=== PATIENT | female | born 1985 ===

== ENCOUNTER 2023-05-08 01:01 | Emergency (ER) | payer OTHER ==
--- OUTSIDE RECORDS SUMMARY | 2023-05-08 01:04 | XMS REPORT | Continuity of Care Document ---
:1985 Author Organization [facility] t Address [address] [place] [address] Care Team Providers Name Role Phone Herlinda Rodriguez Attending Clinician Unavailable Herlinda Rodriguez Admitting Clinician Unavailable Payers Payer Name Policy Type Policy Number Effective Date Expiration Date S ource Problems This patient has no known problems. Allergies, Adverse Reactions, Alerts Allergy Allergy Status Severity Reaction(s) Onset Inactive Treating Comm ents Source Name Type Date Date Clinician azithrom DA Active U 2020-0 [facility] [place] [facility] Active U HIVES 2020-0 [facility] [place] [facility] Active U 2018-0 [facility] [place] [facility] DA Active U HIVES 2018-0 [facility] [place] Medications This patient has no known medications. Procedures Procedure Date / Time Performed Performing Clinician Tiffanie farrell [id number] 2019-12-22 00:00:00 [facility] [id number] 2019-12-22 00:00:00 [facility] [id number] 2019-12-22 00:00:00 [facility] Encounters Start End Encounter Admission Attending Care Care Encounter Source Date/Time Date/Time Type Type Clinicians Facility Department ID 2019-12-22 Inpatient LEONELA Rodriguez [id number] [facility] 21:49:00 Herlinda 42 [facility] 2019-07-25 2019-07-25 Outpatient LEONELA RodriguezWH [id number] [facility] 13:00:00 13:00:00 Herlinda 95 [facility] Results Test Description Test Time Test Comments Results Result Comments Source Coronavirus 2019 nCoV Bedside 2019-12-22 11:12:00 Test Item Value Reference Range Interpretation Comme nts Coronavirus 2019 nCoV Bedside Negative Negative RESULTS CALLED TO MINISTERIO WOMACK (test code = COVNONPUIBED) Jensen ACK & CONFIRMED? PHILIP MARCUS 12/22/19 1112 T his result does not rule out co-inf ections with otherpathogens. * False negative results may occ ur if a specimen isimproperly co llected, transported or handled. Fal se negativeresults may also occur if amplification inhibitors arep resent in the specimen or if inadequate levels of virusesare pres ent in the specimen. Negative result s should beconsidered in the context of a patient's recen t exposures,history and the presenc e of clinical signs and symptomscon sistent with COVID-19. * Neg ative results should be treated as p resumptive andtested with an alterna tive FDA authorized molecular assay if necessary for clinical managm ent, including infectioncontro l. * As with any molecular test, mutations within the target regions Haider ID NOW COVID-19 test c ould affect primerand/or pr obe binding resulting in fa ilure to detect therescence of the virus.TEST PERFORMED UNDER AN EMERGENCY USE AUTHORIZATION F ROM FDA AG HEPATITIS B [id number] 10:36:00 Test Item Value Reference Range Interpretation Comments AG HEPATITIS B SURFACE (test code NONREACTIVE NONREACTIVE = HBSAG) IS CONSENT FORM SIGNED FOR HIV TESTING? YAB HEPATITIS C [id number] 10:36:00 Test Item Value Reference Range Interpretation Comments AB HEPATITIS C (test code = NONREACTIVE NONREACTIVE HCVAB) SIGNAL TO CUTOFF (test code = 0.11 <0.80 N CUTOFF) IS CONSENT FORM SIGNED FOR HIV TESTING? YAB [id number] 10:36:00 Test Item Value Reference Range Interpretation Comments AB TREPONEMA (test code = TREPAB) NONREACTIVE NONREACTIVE IS CONSENT FORM SIGNED FOR HIV TESTING? YAB HIV 1 10:36:00 Test Item Value Reference Range Interpretation Comments AB HIV 1 2 (test NONREACTIVE NONREACTIVE Done by [facility] code = [id number]) 4th Gen HIV Ag/Ab Combo Screen IS CONSENT FORM SIGNED FOR HIV TESTING? YAG HEPATITIS B [id number] 10:25:00 Test Item Value Reference Range Interpretation Comments AG HEPATITIS B SURFACE (test code NONREACTIVE NONREACTIVE = HBSAG) IS CONSENT FORM SIGNED FOR HIV TESTING? YAB HEPATITIS C [id number] 10:25:00 Test Item Value Reference Range Interpretation Comments AB HEPATITIS C (test code = HCVAB) NONREACTIVE SIGNAL TO CUTOFF (test code = CUTOFF) <0.80 IS CONSENT FORM SIGNED FOR HIV TESTING? YAB [id number] 10:25:00 Test Item Value Reference Range Interpretation Comments AB TREPONEMA (test code = TREPAB) NONREACTIVE NONREACTIVE IS CONSENT FORM SIGNED FOR HIV TESTING? YAB HIV 1 10:25:00 Test Item Value Reference Range Interpretation Comments AB HIV 1 2 (test code = PCN02CZ) NONREACTIVE IS CONSENT FORM SIGNED FOR HIV TESTING? YCBC W/AUTO [id number] 09:28:00 Test Item Value Reference Range Interpretation Comments WHITE BLOOD CELL (test code = WBC) 14.4 K/mm3 6.6-12.1 H RED BLOOD CELL (test code = RBC) 4.04 M/mm3 3.45-5.01 N HEMOGLOBIN (test code = HGB) 11.2 g/dL 10.7-13.9 N HEMATOCRIT (test code = HCT) 34.9 % 32.1-42.1 N MEAN CELL VOLUME (test code = MCV) 86 fL 84.1-94.8 N MEAN CELL HGB (test code = MCH) 27.7 pg 27-35 N MEAN CELL HGB CONCETRATION (test 32.1 gm/dL 32.2-34.1 L code = MCHC) RED CELL DISTRIBUTION WIDTH (test 14.5 % 12.4-16.5 N code = RDW) PLATELET COUNT (test code = PLT) 158 K/mm3 133-385 N MEAN PLATELET VOLUME (test code = 10.3 fl 9.1-12.7 N MPV) NEUTROPHIL % (test code = NT%) 82.7 % 56.5-79.4 H LYMPHOCYTE % (test code = LY%) 11.6 % 14.3-34.3 L MONOCYTE % (test code = MO%) 4.3 % 5.1-10.4 L EOSINOPHIL % (test code = EO%) 0.3 % 0.1-3.0 N BASOPHIL % (test code = BA%) 0.3 % 0.1-1.0 N NEUTROPHIL # (test code = NT#) 11.9 K/mm3 LYMPHOCYTE # (test code = LY#) 1.7 K/mm3 MONOCYTE # (test code = MO#) 0.6 K/mm3 EOSINOPHIL # (test code = EO#) 0.04 K/mm3 BASOPHIL # (test code = BA#) 0.0 K/mm3 RBC MORPHOLOGY REQUIRED (test code NORMAL NORMAL = RBCM) PLATELET MORPHOLOGY REQUIRED (test NORMAL NORMAL code = PLTMR)
[2023-05-08] MEDS ORDERED: ADENOSINE 6 MG/ 2ML VIAL IV ONE ×3 (01:38→01:53)
[2023-05-08] MEDS ORDERED: MAGNESIUM SULFATE 1 gm IVPB 1 GM/100 ML BAG IV ONE (01:38)
[2023-05-08] MEDS ORDERED: NA CHLORIDE 0.9% 500 ML ONE ×2 (01:38→02:33)
[2023-05-08 01:40] LABS: Absolute Lymphocytes (CBC) 4.2 K/uL (0.7-4.9); Lymphocytes % 42.2 % (15.3-44.8); MCV 87.8 fL (80-100); MPV 7.3 fL (7.6-11.3); Platelets 260 thou/uL (152-406); RBC Red Blood Cell Count 4.89 M/uL (3.86-4.86)
[2023-05-08 02:00] LABS: ALT/SGPT 22 U/L (13-56); AST/SGOT 17 U/L (15-37); Albumin 3.8 g/dL (3.4-5.0); Alkaline Phosphatase 30 U/L (45-117); BUN Blood Urea Nitrogen 16 mg/dL (7-18); Bicarbonate 25 mEq/L (21-32); Bilirubin Total 0.3 mg/dL (0.2-1.0); Glomerular Filtration Rate 67 ml/min (=/>90); Glucose Level 110 mg/dL (74-106); NT PRO-BNP 251 pg/mL (<125); Protein, Total 7.5 g/dL (6.4-8.2); Sodium Level 138 mEq/L (136-145)
[2023-05-08 02:03] LABS: Bilirubin Direct < 0.1 mg/dL (0-0.2); Bilirubin Indirect, Calculated ND mg/dL (0.2-0.8)
[2023-05-08 02:04] LABS: Troponin High Sensitivity 152.8 pg/mL (<58.9)
[2023-05-08] MEDS ORDERED: KCL 20 MEQ/100 mL IVPB 100 ML IV ONE (02:33)
--- NOTE | 2023-05-08 04:05 | ER ---
Nurse's Notes [facility] Name: Archana Alexandre Age: 37 yrs Sex: Female : 1985 Arrival Date: 05/08/2023 Time: 01:01 Bed 4 Private MD: Diagnosis: Supraventricular tachycardia;Hypokalemia Presentation: 05/08 01:11 Chief complaint: Patient states: RACING HEART SINCE MIDNIGHT. Coronavirus screen: At bp this time, the client does not indicate any symptoms associated with coronavirus-19. Ebola Screen: No symptoms or risks identified at this time. Initial Sepsis Screen: Does the patient meet any 2 criteria? HR > 90 bpm. No. Patient's initial sepsis screen is negative. Does the patient have a suspected source of infection? No. Patient's initial sepsis screen is negative. Risk Assessment: Do you want to hurt yourself or someone else? Patient reports no desire to harm self or others. Onset of symptoms was May 08, 2023 at 00:00. 01:11 Method Of Arrival: Ambulatory bp 01:11 Acuity: CHRISTOPHER 3 bp Triage Assessment: 01:14 General: Appears in no apparent distress. Behavior is calm, cooperative, appropriate bp for age. Pain: Denies pain. Cardiovascular: Rhythm is SVT. Historical: - Allergies: 01:14 Azithromycin; bp - Home Meds: 01:14 CONTROL [Active]; bp - PMHx: 01:14 None; bp - Immunization history:: Adult Immunizations up to date. - Social history:: Smoking status: Patient denies any tobacco usage or history of. Patient/guardian denies using alcohol, street drugs, tobacco products. - Family history:: not pertinent. - Hospitalizations: : No recent hospitalization is reported. Screenin:15 [facility] ED Fall Risk Assessment (Adult) History of falling in the last 3 months, pf1 including since admission No falls in past 3 months (0 pts) Confusion or Disorientation No (0 pts) Intoxicated or Sedated No (0 pts) Impaired Gait No (0 pts) Mobility Assist Device Used No (0 pt) Altered Elimination No (0 pt) Score/Fall Risk Level 0 - 2 = Low Risk Oriented to surroundings, Maintained a safe environment, Educated pt \T\ family on fall prevention, incl call for assistance when getting out of bed, Assessed \T\ reinforced patient's understanding of fall precautions, Provided non-skid footwear, Hourly rounding (assess needs \T\ fall precautionary measures) done, Used ambulatory aids as needed (educated on \T\ assisted with), Used gait belt as appropriate. 01:15 Abuse screen: Denies threats or abuse. Nutritional screening: No deficits noted. pf1 Tuberculosis screening: No symptoms or risk factors identified. Assessment: 01:15 General: Appears in no apparent distress. uncomfortable, well groomed, well developed, pf1 Behavior is calm, cooperative, appropriate for age. 01:15 Pain: Denies pain. Neuro: No deficits noted. Level of Consciousness is awake, alert, pf1 obeys commands, Oriented to person, place, time, situation. Cardiovascular: Reports palpitations, heart racing,onset 0000. Patient denies any pain. Respiratory: No deficits noted. Airway is patent Respiratory effort is even, unlabored, Respiratory pattern is regular, symmetrical, Breath sounds are clear bilaterally. GI: No deficits noted. No signs and/or symptoms were reported involving the gastrointestinal system. : No deficits noted. No signs and/or symptoms were reported regarding the genitourinary system. EENT: No deficits noted. No signs and/or symptoms were reported regarding the EENT system. 02:15 Reassessment: Patient appears in no apparent distress at this time. Patient and/or pf1 family updated on plan of care and expected duration. Pain level reassessed. Patient is alert, oriented x 3, equal unlabored respirations, skin warm/dry/pink. Patient states symptoms have improved. 03:00 Reassessment: Patient appears in no apparent distress at this time. Patient and/or pf1 family updated on plan of care and expected duration. Pain level reassessed. Patient is alert, oriented x 3, equal unlabored respirations, skin warm/dry/pink. Patient states feeling better. Patient states symptoms have improved. 04:00 Reassessment: Patient appears in no apparent distress at this time. Patient and/or pf1 family updated on plan of care and expected duration. Pain level reassessed. Patient is alert, oriented x 3, equal unlabored respirations, skin warm/dry/pink. Patient states feeling better. Patient states symptoms have improved. Vital Signs: 01:11 BP 128 / 110; Pulse 225; Resp 20; Temp 98.1; Pulse Ox 100% ; Weight 61.23 kg; Height 5 bp ft. 7 in. ; 02:00 BP 115 / 86; Pulse 97; Resp 16; Pulse Ox 100% ; pf1 02:30 BP 114 / 92; Pulse 92; Resp 16 S; Pulse Ox 100% on R/A; km8 03:00 BP 110 / 85; Pulse 92; Resp 18 S; Pulse Ox 100% on R/A; km8 03:30 BP 119 / 86; Pulse 100; Resp 16 S; Pulse Ox 100% on R/A; km8 04:00 BP 120 / 85; Pulse 100; Resp 16 S; Pulse Ox 100% on R/A; km8 01:11 Body Mass Index 21.14 (61.23 kg, 170.18 cm) bp ED Course: 01:06 Patient arrived in ED. ag3 01:07 Narciso Eid MD is Attending Physician. rn 01:11 Yesenia Chadwick RN is Primary Nurse. km8 01:12 Triage completed. bp 01:14 Arm band placed on. bp 01:15 Client placed on continuous cardiac and pulse oximetry monitoring. NIBP monitoring pf1 applied. clinical research monitor on. Pulse ox on. 01:15 Patient has correct armband on for positive identification. Placed in gown. Bed in low pf1 position. Call light in reach. 01:15 Inserted saline lock: 20 gauge in right antecubital area, using aseptic technique. pf1 Blood collected. 01:58 Basic Metabolic Panel Sent. pf1 01:59 LFT's Sent. pf1 02:40 XRAY Chest (1 view) In Process Unspecified. EDMS 03:25 Troponin High Sensitivity: draw at 0315 Sent. km8 04:04 Hernando Velázquez MD is Referral Physician. rn 04:36 Provided Education on: follow up with cardiology. pf1 04:36 No provider procedures requiring assistance completed. IV discontinued, intact, pf1 bleeding controlled, No redness/swelling at site. Pressure dressing applied. Administered Medications: 01:25 Drug: Magnesium Sulfate IVPB 1 grams IVPB once over 1 hrs Route: IVPB; Infused Over: 1 pf1 hrs; Site: right antecubital; 02:25 Follow up: Response: No adverse reaction; Marked relief of symptoms; IV Status: pf1 Completed infusion; IV Intake: 100ml 01:25 Drug: NS 0.9% IV 500 ml IV at bolus once Route: IV; Rate: bolus; Site: right pf1 antecubital; 02:00 Follow up: Response: No adverse reaction; Marked relief of symptoms; IV Status: pf1 Completed infusion; IV Intake: 500ml 01:39 Drug: Adenocard IVP 6 mg IVP once Route: IVP; Site: right antecubital; pf1 01:50 Follow up: Response: Cardiac rhythm is unchanged pf1 01:43 Drug: Adenocard IVP 6 mg IVP once Route: IVP; Site: right antecubital; pf1 01:55 Follow up: Response: No adverse reaction; Cardiac rhythm is unchanged pf1 01:55 Drug: Adenocard IVP 6 mg IVP once Route: IVP; Site: right antecubital; pf1 02:44 Follow up: Response: No adverse reaction; Cardiac rhythm changed pf1 02:30 Drug: Potassium Chloride IV 20 mEq IV at calculated rate once; administer over 1-2 pf1 hours Route: IV; Rate: calculated rate; Site: right antecubital; 04:30 Follow up: Response: No adverse reaction; Marked relief of symptoms; IV Status: pf1 Completed infusion; IV Intake: 100ml Medication: 04:37 VIS not applicable for this client. pf1 Intake: 02:00 IV: 500ml; Total: 500ml. pf1 02:25 IV: 100ml; Total: 600ml. pf1 04:30 IV: 100ml; Total: 700ml. pf1 Outcome: 04:04 Discharge ordered by . rn 04:36 Discharged to home ambulatory, pf1 04:36 Condition: improved 04:36 Discharge instructions given to patient, Instructed on discharge instructions, follow up and referral plans. Demonstrated understanding of instructions, follow-up care, 04:37 Patient left the ED. pf1 Signatures: Dispatcher [employer] EDMS Narciso Eid MD MD rn Peltier, Brian RN RN Tabatha Washington Pamala, RN RN pf1 Yesenia Chadwick RN RN km8 Corrections: (The following items were deleted from the chart) 01:14 01:14 Allergies: No Known Allergies; bp bp
--- NOTE | 2023-05-08 04:05 | EDPHYS ---
Physician Documentation [facility] Name: Archana Alexandre Age: 37 yrs Sex: Female : 1985 Arrival Date: 05/08/2023 Time: 01: Bed 4 Private MD: ED Physician Narciso Eid HPI: 05/08 01:54 This 37 yrs old Female presents to ER via Ambulatory with complaints of Irregular rn Pulse, Arm Pain. 01:54 The patient presents with a history of heart racing. Context: The symptoms occur at rn rest, during sleep. Onset: The symptoms/episode began/occurred just prior to arrival. Modifying factors: The symptoms are aggravated by nothing. The symptoms are alleviated by nothing. Severity of symptoms: At their worst the symptoms were moderate in the emergency department the symptoms are unchanged. The patient has experienced similar episodes in the past. The patient has not recently seen a physician. Patient reports palpitations and heart racing, woke up from her sleep, has happened multiple times before but has never been able to capture it. In triage heart rate above 200. Reports full cardiac work-up in the past when this happened the first time and was unable to capture her diagnosis problem. No chest pain but feeling left arm pain. No shortness of breath or syncope.. Historical: - Allergies: 01:14 Azithromycin; bp - Home Meds: :14 CONTROL [Active]; bp - PMHx: 01:14 None; bp - Immunization history:: Adult Immunizations up to date. - Social history:: Smoking status: Patient denies any tobacco usage or history of. Patient/guardian denies using alcohol, street drugs, tobacco products. - Family history:: not pertinent. - Hospitalizations: : No recent hospitalization is reported. ROS: 01:54 Constitutional: Negative for fever, chills, and weight loss, Cardiovascular: Positive rn for palpitations Respiratory: Negative for shortness of breath, cough, wheezing, and pleuritic chest pain, Abdomen/GI: Negative for abdominal pain, nausea, vomiting, diarrhea, and constipation, MS/Extremity: Negative for injury and deformity, Skin: Negative for injury, rash, and discoloration, Neuro: Negative for headache, weakness, numbness, tingling, and seizure, Exam: :54 Constitutional: This is a well developed, well nourished patient who is awake, alert, rn anxious Head/Face: Normocephalic, atraumatic. Cardiovascular: Tachycardic, regular. No pulse deficits Respiratory: No increased work of breathing, no retractions or nasal flaring. Skin: Warm, dry, no cyanosis MS/ Extremity: Pulses equal, no cyanosis. Neuro: Awake and alert, GCS 15 01:57 ECG was reviewed by the Attending Physician. rn Vital Signs: 01:11 BP 128 / 110; Pulse 225; Resp 20; Temp 98.1; Pulse Ox 100% ; Weight 61.23 kg; Height 5 bp ft. 7 in. ; 02:00 BP 115 / 86; Pulse 97; Resp 16; Pulse Ox 100% ; pf1 02:30 BP 114 / 92; Pulse 92; Resp 16 S; Pulse Ox 100% on R/A; km8 03:00 BP 110 / 85; Pulse 92; Resp 18 S; Pulse Ox 100% on R/A; km8 03:30 BP 119 / 86; Pulse 100; Resp 16 S; Pulse Ox 100% on R/A; km8 04:00 BP 120 / 85; Pulse 100; Resp 16 S; Pulse Ox 100% on R/A; km8 01:11 Body Mass Index 21.14 (61.23 kg, 170.18 cm) bp MDM: 01:07 Patient medically screened. rn 01:53 ED course: Patient cardioverted successfully to sinus rhythm on third dose of rn adenosine, 12 mg. Now in sinus rhythm and asymptomatic.. 01:57 ED course: Repeat EKG after adenosine x3 shows normal sinus rhythm without ischemic rn findings. 02:28 ED course: Troponin 152.8. Likely demand ischemia due to persistent SVT for about an rn hour and a half. Spoke to patient about this and admission versus [place] versus repeat troponin. Patient states that she would rather repeat troponin and is now asymptomatic, if there is not a significant increase or uptrend in troponin patient would like to go home. Patient understands that this is likely going to recur and needs follow-up with electrophysiology.. 02:35 ED course: I personally spent 35 minutes engaged in work directly related to the rn individual patient's care. This does not include any time spent performing procedures. The patient has been deemed critically ill because of extreme tachycardia, SVT, requiring 3 doses of adenosine, IV magnesium and potassium. 04:03 Differential diagnosis: arrythmia, dehydration, stress disorder, SVT. Data reviewed: rn vital signs, nurses notes, lab test result(s), EKG, radiologic studies, plain films, and as a result, I will discharge patient. I considered the following discharge prescriptions or medication management in the emergency department Medications were administered in the Emergency Department. See MAR. Independent interpretation of the following test(s) in the Emergency Department EKG: See my EKG interpretation above X-Ray: My interpretation is Chest x-ray images negative for pneumothorax or infiltrate per my interpretation. Counseling: I had a detailed discussion with the patient and/or guardian regarding the historical points, exam findings, and any diagnostic results supporting the discharge/admit diagnosis, lab results, radiology results, the need for outpatient follow up, to return to the emergency department if symptoms worsen or persist or if there are any questions or concerns that arise at home. Response to treatment: the patient's symptoms have resolved after treatment, the patient's condition has returned to base line, the patient is now symptom free, and as a result, I will discharge patient. Special discussion: I discussed with the patient/guardian in detail that at this point there is no indication for admission to the hospital. It is understood, however, that if the symptoms persist or worsen the patient needs to return immediately for re-evaluation. Based on the history and exam findings, there is no indication for further emergent testing or inpatient evaluation. I discussed with the patient/guardian the need to see the combination machine tool setter for further evaluation of the symptoms. ED course: Troponin has decreased on repeat troponin since patient out of SVT and now in sinus rhythm. Will discharge home with electrophysiology follow-up and return precautions given and understood. I have personally reviewed all of the results, including but not limited to blood tests and imaging deemed necessary to safely discharge this patient at this time. All results given to and printed out for patient. I personally went over all the results with the patient and answered all questions. Patient will follow-up with PCP and or specialist as discussed. Return precautions given and understood.. 05/08 01:15 Order name: Basic Metabolic Panel; Complete Time: 02:05 rn 05/08 01:15 Order name: CBC with Diff; Complete Time: 02: rn 05/08 01:15 Order name: LFT's; Complete Time: 02: rn 05/08 01:15 Order name: NT PRO-BNP; Complete Time: 02:05 rn 05/08 01:15 Order name: Troponin HS; Complete Time: 02: rn 05/08 03:04 Order name: Troponin High Sensitivity: draw at 0315; Complete Time: 04:10 rn 05/08 01:15 Order name: XRAY Chest (1 view) rn 05/08 01:15 Order name: EKG; Complete Time: 01: rn 05/08 01:15 Order name: Cardiac monitoring; Complete Time: rn 05/08 01:15 Order name: EKG - Nurse/Tech; Complete Time: : rn 05/08 01:15 Order name: IV Saline Lock; Complete Time: rn 05/08 01:15 Order name: Labs collected and sent; Complete Time: rn 05/08 01:15 Order name: O2 Per Protocol; Complete Time: rn 05/08 01:15 Order name: O2 Sat Monitoring; Complete Time: rn EC:57 Rate is 207 beats/min. Rhythm is regular. QRS Bono is Normal. QRS interval is shortened rn at 70 msec. No Q waves. T waves are Normal. No ST changes noted. Clinical impression: SVT. Interpreted by me. Reviewed by me. Administered Medications: 01:25 Drug: Magnesium Sulfate IVPB 1 grams IVPB once over 1 hrs Route: IVPB; Infused Over: 1 pf1 hrs; Site: right antecubital; 02:25 Follow up: Response: No adverse reaction; Marked relief of symptoms; IV Status: pf1 Completed infusion; IV Intake: 100ml 01:25 Drug: NS 0.9% IV 500 ml IV at bolus once Route: IV; Rate: bolus; Site: right pf1 antecubital; 02:00 Follow up: Response: No adverse reaction; Marked relief of symptoms; IV Status: pf1 Completed infusion; IV Intake: 500ml 01:39 Drug: Adenocard IVP 6 mg IVP once Route: IVP; Site: right antecubital; pf1 01:50 Follow up: Response: Cardiac rhythm is unchanged pf1 01:43 Drug: Adenocard IVP 6 mg IVP once Route: IVP; Site: right antecubital; pf1 01:55 Follow up: Response: No adverse reaction; Cardiac rhythm is unchanged pf1 01:55 Drug: Adenocard IVP 6 mg IVP once Route: IVP; Site: right antecubital; pf1 02:44 Follow up: Response: No adverse reaction; Cardiac rhythm changed pf1 02:30 Drug: Potassium Chloride IV 20 mEq IV at calculated rate once; administer over 1-2 pf1 hours Route: IV; Rate: calculated rate; Site: right antecubital; 04:30 Follow up: Response: No adverse reaction; Marked relief of symptoms; IV Status: pf1 Completed infusion; IV Intake: 100ml Disposition Summary: 05/08/23 04:04 Discharge Ordered Notes: Location: Home rn Problem: new rn Symptoms: are resolved rn Condition: Stable rn Diagnosis - Supraventricular tachycardia rn - Hypokalemia rn Followup: rn - With: Hernando Velázquez MD - When: As needed - Reason: Recheck today's complaints, Re-evaluation by your physician Discharge Instructions: - Discharge Summary Sheet rn - Potassium Content of Foods rn - Supraventricular Tachycardia, Adult rn - Hypokalemia rn Forms: - Medication Reconciliation Form rn - Thank You Letter rn - Antibiotic 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 Total time: 35 minutes rn Signatures: Dispatcher [employer] Narciso Aquino MD MD rn Peltier, Brian, RN RN bp Finley, Pamala, RN RN pf1 Corrections: (The following items were deleted from the chart) 01:14 01:14 Allergies: No Known Allergies; bp bp
[2023-05-08 04:44] VITALS: TEMP 98.1; O2SAT 100
[2023-05-08 04:50] VITALS: BP 120/85
--- NOTE | 2023-05-08 15:42 | EKG ---
Test Date: 2023-05-08 Test Time: 01:51:35 Dean Of Students: KIM MEASUREMENT RESULTS: Intervals: Rate: 91 OH: 130 QRSD: 84 QT: 356 QTc: 437 [place]: P: 70 OH: 130 QRS: 70 T: 55 INTERPRETIVE STATEMENTS: Normal sinus rhythm Normal ECG Compared to ECG 05/08/2023 01:46:07 Sinus tachycardia no longer present ST (T wave) deviation no longer present Electronically Signed On 05-08-23 15:41:11 CDT by Hernando Velázquez
--- NOTE | 2023-05-08 15:43 | EKG ---
Test Date: 2023-05-08 Test Time: 01:17:02 Accounting Teacher: KIM MEASUREMENT RESULTS: Intervals: Rate: 204 [place]: 104 QRSD: 68 QT: 218 QTc: 401 [place]: P: SC: 104 QRS: 90 T: -14 INTERPRETIVE STATEMENTS: Sinus tachycardia with short SC Septal infarct, age undetermined Abnormal ECG No previous ECG available for comparison Electronically Signed On 05-08-23 15:41:24 CDT by Hernando Velázquez
--- NOTE | 2023-05-08 15:43 | EKG ---
Test Date: 2023-05-08 Test Time: 01:17:48 Health Care Marketing Specialist: KIM MEASUREMENT RESULTS: Intervals: Rate: 206 [place]: 112 QRSD: 76 QT: 212 QTc: 392 [place]: P: [place]: 112 QRS: 89 T: -38 INTERPRETIVE STATEMENTS: Sinus tachycardia Nonspecific ST abnormality Abnormal ECG Compared to ECG 05/08/2023 01:17:02 ST (T wave) deviation now present Short [place] interval no longer present Myocardial infarct finding no longer present Electronically Signed On 05-08-23 15:41:22 CDT by Hernando Velázquez
--- NOTE | 2023-05-08 15:43 | EKG ---
Test Date: 2023-05-08 Test Time: 01:30:28 Release Specialist: KIM MEASUREMENT RESULTS: Intervals: Rate: 207 [place]: QRSD: 70 QT: 210 QTc: 389 [place]: P: [place]: QRS: 80 T: -71 INTERPRETIVE STATEMENTS: Supraventricular tachycardia Septal infarct, age undetermined Abnormal ECG Compared to ECG 05/08/2023 01:17:48 Myocardial infarct finding now present Sinus tachycardia no longer present ST (T wave) deviation no longer present Electronically Signed On 05-08-23 15:41:20 CDT by Hernando Velázquez
--- NOTE | 2023-05-08 15:43 | EKG ---
Test Date: 2023-05-08 Test Time: 01:46:07 Software Support Analyst: KIM MEASUREMENT RESULTS: Intervals: Rate: 111 [place]: 138 QRSD: 78 QT: 312 QTc: 424 [place]: P: 64 [place]: 138 QRS: 70 T: 54 INTERPRETIVE STATEMENTS: Sinus tachycardia Nonspecific ST abnormality Abnormal ECG Compared to ECG 05/08/2023 01:30:28 ST (T wave) deviation now present Supraventricular tachycardia no longer present Myocardial infarct finding no longer present Electronically Signed On 05-08-23 15:41:15 CDT by Hernando Velázquez
--- NOTE | 2023-05-08 20:26 | RAD REPORT ---
EXAM DESCRIPTION: Chest Single View CLINICAL HISTORY: PALPITATIONS TECHNIQUE: AP chest COMPARISON: None available for comparison FINDINGS: CHEST: Heart: The cardiomediastinal silhouette is within normal limits. Lungs: No focal consolidation. Mediastinum: Unremarkable Pleura: No appreciable effusion. No pneumothorax. Bones: Intact IMPRESSION: No acute cardiopulmonary disease. Electronically signed by: Jesus Lazo MD 05/08/2023 2:55 AM CDT Due to temporary technical issues with the PACS/Fluency reporting system, reports are being signed by the in house radiologists without review as a courtesy to insure prompt reporting. The interpreting radiologist is fully responsible for the content of the report.
== END 2023-05-08 04:37 | disposition home or self-care (01) ==
LOC: ER 01:01
DX: R00.0 Tachycardia, unspecified (principal); R00.2 Palpitations; E87.6 Hypokalemia
CPT/HCPCS: 96365; 96367; 93005 ×5; 85025; 80048; 36415; 80076; 84484 ×2; 83880; 71045; 96375; 99285; 96366; J0153 ×3; J3480; J3475; J7040 ×2